=== PATIENT | male | born 1950 | race Caucasian/White ===

== ENCOUNTER 2019-06-02 09:57 | Emergency (ER) | payer MEDICARE, BC, OTHER ==
[2019-06-02 10:20] VITALS: BP 128/73
--- NOTE | 2019-06-02 10:23 | UC ---
Skin Complaint HPI - HPI Summary HPI Summary: 68-year-old male who had a small piece of metal in his left thumb approximate 2 weeks ago. He was able to remove that without difficulty and has had no problems until yesterday when he noted it was red swollen and tender. He's had no fever or chills. He thinks he may still have a piece of metal in his thumb. - History of Current Complaint Chief Complaint: UCSkin Time Seen by Provider: 06/02/19 10:13 Stated Complaint: LEFT THUMB COMPLAINT Hx Obtained From: Patient Onset/Duration: Gradual Onset Skin Exposure Onset/Duration: Worse Since: Timing: Constant - Worse since yesterday when he noted some redness and tenderness and mild swelling. Onset Severity: Mild Current Severity: Mild Pain Intensity: 7 Location: Other - Distal Left thumb Aggravating Factor(s): Touch Alleviating Factor(s): Nothing Associated Signs & Symptoms: Positive: Tenderness Related History: Foreign Body - Patient states he had a small piece of metal in his distal left thumb but he was able to remove that approximately 2 weeks ago. His last tetanus immunization is up-to-date. - Allergy/Home Medications Allergies/Adverse Reactions: Allergies Allergy/AdvReac Type Severity Reaction Status Date / Time No Known Allergies Allergy Verified 06/02/19 10:20 Home Medications: Home Medications Aspirin 81 mg PO DAILY 06/02/19 [History Confirmed 06/02/19] Cholecalciferol TAB* [Vitamin D TAB*] 1,000 unit PO DAILY 06/02/19 [History Confirmed 06/02/19] Levothyroxine TAB* [Synthroid TAB*] 100 mcg PO DAILY 06/02/19 [History Confirmed 06/02/19] Pravastatin Sodium 5 mg PO DAILY 06/02/19 [History Confirmed 06/02/19] Riboflavin (Vitamin B2) [Vitamin B-2] 25 mg PO 06/02/19 [History] PMH/Surg Hx/FS Hx/Imm Hx Previously Healthy: Yes - Surgical History Surgical History: Yes Surgery Procedure, Year, and Place: fx neck and shoulder-2004 - Family History Known Family History: Positive: Non-Contributory - Social History Alcohol Use: Occasionally Substance Use Type: None Smoking Status (MU): Never Smoked Tobacco Review of Systems All Other Systems Reviewed And Are Negative: Yes Skin: Positive: Other - Redness, mild tenderness and mild swelling distal left thumb. Is Patient Immunocompromised?: No Physical Exam Triage Information Reviewed: Yes Appearance: Well-Appearing, No Pain Distress, Well-Nourished Vital Signs: Initial Vital Signs Temp 98.0 F 06/02/19 10:14 Pulse 55 06/02/19 10:14 Resp 18 06/02/19 10:14 BP 128/73 06/02/19 10:14 Pulse Ox 100 06/02/19 10:14 Vital Signs Reviewed: Yes Musculoskeletal: Positive: Strength Intact, ROM Intact, Other: - Good peripheral pulses neuro sensation and capillary refill, good finger strength at flexion extension against resistance. The distal left thumb radial side has some mild erythema swelling and tenderness on palpation. Neurological: Positive: Alert, Muscle Tone Normal Psychological Exam: Normal Skin: Positive: Other - See above note. Course/Dx - Course Course Of Treatment: Thumb x-ray:Indication: Left thumb pain, foreign body. 2 views of the left thumb demonstrates degenerative changes of the first metacarpal phalangeal joint. No evidence of radiopaque foreign body is noted. IMPRESSION: No fracture is noted. No radiopaque foreign body is noted. Soft tissue swelling is noted in the volar aspect of the distal phalanx. - Diagnoses Provider Diagnosis: Cellulitis of thumb, left Discharge - Sign-Out/Discharge Documenting (check all that apply): Patient Departure All imaging exams completed and their final reports reviewed: Yes - Discharge Plan Condition: Good Disposition: HOME Prescriptions: Cephalexin CAP* [Keflex 500 CAP*] 500 mg PO TID 10 Days #30 cap Patient Education Materials: Cellulitis (DC) Referrals: Jose Rafael Robert MD [Primary Care Provider] - Additional Instructions: Warm salt water soaks 4-6 times a day 20 minutes each time. Definite follow-up with your primary care provider or surgeon if no improvement in 4 or 5 days or sooner if you develop red streaks up your hand and arm and run a fever. You can do the warm salt water soaks for 24 hours and if the area is worse instead of better then start the antibiotic. - Billing Disposition and Condition Condition: GOOD Disposition: Home
== END 2019-06-02 11:08 | disposition home or self-care (01) ==
LOC: UCCORT 09:57
DX: L03.012 Cellulitis of left finger (principal)
CPT/HCPCS: 99202; G0463